=== PATIENT | female | born 1960 | race Two or more races ===

== ENCOUNTER 2023-01-01 12:02 | Emergency (ER) | payer MEDICAID, OTHER ==
[~2023-01-01] VITALS: Ht 152.4 cm; Wt 61.8 kg
[2023-01-01 12:02] VITALS: BP 151/86; PULSE 87; RESP 18; TEMP 97.5; O2SAT 99
== END 2023-01-01 19:21 | disposition home or self-care (01) ==
LOC: ER 12:02
DX: M25.512 Pain in left shoulder (principal); M54.2 Cervicalgia; Z53.21 Procedure and treatment not carried out due to patient leaving prior to being seen by health care provider